=== PATIENT | female | born 1955 | race Caucasian/White ===

== ENCOUNTER 2017-05-31 20:16 | Inpatient (IN) | payer MEDICARE, MEDICAID ==
[~2017-05-31] VITALS: Ht 157.5 cm; Wt 51.3 kg
[2017-05-31 20:17] VITALS: BP 179/103
[2017-05-31] MEDS ORDERED: WELLBUTRIN SR150 MG PO (20:35)
[2017-05-31] MEDS ORDERED: HYDROCODON-ACE1 EAC7 PO (20:35)
[2017-05-31] MEDS ORDERED: LOPRESSOR25 PO (20:36)
[2017-05-31] MEDS ORDERED: SINGULAIR 10 MG10 M1 PO (20:36)
[2017-05-31] MEDS ORDERED: VENTOLIN HFA 1818 GM INH (20:37)
[2017-05-31] MEDS ORDERED: SYMBICORT160 MCG/4. INH (20:37)
[2017-05-31] MEDS ORDERED: NICOTINE TRANSD21 M1 TOP (20:37)
[2017-05-31] MEDS ORDERED: SPIRIVA INH (20:39)
[2017-05-31 21:16] LABS: ABSOLUTE LYMPHOCYTES 1.8 thou/uL (0.8-5.3); ABSOLUTE MONOCYTES 1.1 thou/uL (0.0-1.2); BASOPHILS 0.4 %; EOSINOPHILS 0.3 %; HEMATOCRIT 34.1 % (37.0-47.0); HEMOGLOBIN 11.5 gm/dL (12.0-15.0); LYMPHOCYTES 15.1 %; MCHC 33.8 g/dL (28.0-37.0); MCV 91.8 fL (80.0-100.0); MONOCYTES 9.2 %; MPV 7.5 fl. (7.2-11.1); NUCLEATED RBCS 0 /100WBC; PLATELET COUNT* 369 thou/uL (150-400); RBC 3.71 mil/uL (4.20-5.00); RDW-CV 14.1 % (10.5-14.5); WBC 12.1 thou/uL (4.0-11.0)
[2017-05-31 21:29] LABS: CALCIUM 8.4 mg/dL (8.5-10.1); CREATININE 0.8 mg/dL (0.6-1.3); POTASSIUM 3.9 mmol/L (3.5-5.1)
--- NOTE | 2017-05-31 21:31 | NUR ---
DR GALLARDO HERE TO SEE PATIENT
[2017-05-31 21:34] LABS: ALBUMIN 3.4 g/dL (3.4-5.0); TOTAL BILIRUBIN 0.2 mg/dL (<0.1-1.0); TOTAL PROTEIN 6.7 g/dL (6.4-8.2)
[2017-05-31 22:05] LABS: URINE BILIRUBIN NEGATIVE (Negative); URINE BLOOD NEGATIVE (Negative); URINE CLARITY CLEAR; URINE COLOR YELLOW; URINE GLUCOSE-RANDOM NEGATIVE (Negative); URINE KETONES NEGATIVE (Negative); URINE LEUKOCYTES-REFLEX NEGATIVE (Negative); URINE NITRITE-REFLEX NEGATIVE (Negative); URINE PROTEIN NEGATIVE (Negative); URINE SPECIFIC GRAVITY 1.025 (1.005-1.030); URINE UROBILINOGEN 0.2 E.U./dl (0.2-1.0)
[2017-05-31 23:10] VITALS: BP 181/106
[2017-05-31 23:31] VITALS: BP 133/99
[2017-06-01 04:10] VITALS: BP 125/74
--- NOTE | 2017-06-01 04:36 | NUR ---
END SHIFT: PT RESTED WELL. C/O PAIN IN RLE. RELIEVED WITH IV PAIN MEDICATION. FAMILY AT BEDSIDE. IVF INFUSING WITHOUT DIFFICUTLY. 2+ PULSE NOTED IN RLE, FOOT IS WARM AND DRY WITH GOOD SENSATION AND PT CAN WIGGLE TOES APPROPRIATELY. SR ON MONITOR. ORELLANA DRAINING ADEQUATE. PLANS FOR ORTHO CONSULT THIS AM. PT HAS REMAINED NPO FOR THIS. SAFETY PRECAUTIONS IN PLACE. CALL LIGHT IN REACH. PERFORMED HOURLY ROUNDING. WILL CONT TO MONITOR.
[2017-06-01 05:30] LABS: HEMATOCRIT 30.8 % (37.0-47.0); HEMOGLOBIN 10.6 gm/dL (12.0-15.0); MCH 31.7 pg (26.0-34.0); MCHC 34.4 g/dL (28.0-37.0); MCV 92.2 fL (80.0-100.0); MPV 7.5 fl. (7.2-11.1); RBC 3.34 mil/uL (4.20-5.00); RDW-CV 14.1 % (10.5-14.5); WBC 9.7 thou/uL (4.0-11.0)
[2017-06-01 06:17] LABS: ALBUMIN 2.9 g/dL (3.4-5.0); CALCIUM 7.9 mg/dL (8.5-10.1); CREATININE 0.6 mg/dL (0.6-1.3); POTASSIUM 3.4 mmol/L (3.5-5.1); TOTAL BILIRUBIN 0.3 mg/dL (<0.1-1.0); TOTAL PROTEIN 5.9 g/dL (6.4-8.2)
[2017-06-01 09:30] VITALS: BP 143/89
[2017-06-01 12:00] VITALS: BP 134/83
--- NOTE | 2017-06-01 15:51 | NUR ---
ASSUMED PT CARE AT 0700 PT IS ALERT AND ORIENTED X 4 PT HAS CONFUSION SISTER STATES PT WILL , PT C/O PAIN ORTHO IS NOT DOING SURGERY TODAY THEY WILL DO SURGERY TOMORROW PT WILL BE NPO AFTER MIDNIGHT GAVE PT PAIN MEDS AND ORTHO APPLIED SOFT SPLINT TO PT WHO TOLERATED PROCEDURE WELL, PT IS TURNED Q 2 HOURS PT HAS ORELLANA FOR IMMOBILAZATION, PT CALLS OUT APPROPRIATELY GAVE PAIN MEDS SCHEDULED, PT IS SR ON THE MONITOR WILL CONTINUE TO MONITOR
[2017-06-01 16:00] VITALS: BP 141/84
[2017-06-01 19:45] VITALS: BP 131/79
[2017-06-02] VITALS: BP 139/78
[2017-06-02 04:02] VITALS: BP 128/79
--- NOTE | 2017-06-02 04:18 | NUR ---
END SHIFT: PT RESTED WELL. C/O PAIN RELLIEVED BY PAIN MEDICATION. AWAITING ORTHO SURGERY TODAY. HAS REMAINED STRICT NPO. SPLINT ON R LEG REMAINS DRY INTACT. ORELLANA DRAINING ADEQUATE. VSS. ASSESSMENT UNCHANGED. SAFETY PRECAUTIONS IN PLACE.
[2017-06-02 07:32] LABS: CALCIUM 7.9 mg/dL (8.5-10.1); CREATININE 0.6 mg/dL (0.6-1.3); MAGNESIUM 1.8 mg/dL (1.8-2.4)
[2017-06-02 07:33] LABS: HEMATOCRIT 33.7 % (37.0-47.0); HEMOGLOBIN 11.2 gm/dL (12.0-15.0); MCH 30.8 pg (26.0-34.0); MCHC 33.1 g/dL (28.0-37.0); MCV 93.2 fL (80.0-100.0); MPV 7.7 fl. (7.2-11.1); RBC 3.62 mil/uL (4.20-5.00); WBC 9.6 thou/uL (4.0-11.0)
[2017-06-02 07:57] VITALS: BP 128/79
[2017-06-02 08:05] VITALS: BP 136/86
[2017-06-02 15:30] VITALS: BP 148/93
--- NOTE | 2017-06-02 15:46 | NUR ---
MET WITH PT'S SON/MEIR AND SISTER/SYLVIA AND THEN WITH PT TO DISCUSS HOME SITUATION/DC PLANNING. PT ADMITTED AFTER FALL WITH FEMUR FX. PER MEIR, PT HAD BEEN LIVING WITH HIM AND HIS GF RECENTLY. SHE HAD A FALL APR [address] [facility] AND THEN WENT TO SNF AT [facility]. STAYED UNTIL MAY 13 AND HAS BEEN AT HIS HOUSE SINCE WITH [facility]. PT HAD BEEN USING WALKER AND DOING FAIRLY WELL. HAD FALL THERE, MEIR STATES PT HAD BEEN USING THE STAIR AND IS NOT ALWAYS COMPLIANT WITH INSTRUCTIONS. HX OF TBI AND FAMILY THINKS SOME 'DEMENTIA' ALTHOUGH STATE HAVE NEVER BEEN 'OFFICIALLY' TOLD THAT. MEIR IS CONCERNED THAT PT WILL NOT BE ABLE TO RETURN HOME AND THINKS SHE PROBABLY NEEDS SNF TO LTC. THEY ARE INTERESTED IN STAYING CLOSE TO [place]. DISCUSSED OPTIONS. THEY WOULD LIKE TO HAVE [facility] AND [facility] CHECKED. CALLED AND FAXED REFERRAL TO BOTH FACILTIIES. ANTICIPATE PT MAY BE READY FOR DC NEAR THE END OF THE WEEK. WILL FOLLOW
--- NOTE | 2017-06-02 18:10 | EKG ---
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
[2017-06-02 20:00] VITALS: BP 156/98
--- NOTE | 2017-06-02 20:08 | NUR ---
ASSUMED CARE OF PT AT 0710. PT CONTINUES TO BE A&O X1 TO SELF. PT WENT TO THE OR THIS MORNING TO HAVE A ORIF OF THE RIGHT FEMUR. PT RETURNED THIS AFTERNOON AND HAS BEEN RESTING IN BED SICE. PT C/O PAIN HAVE BEEN CONTROLLED WITH ALTERNATING PO AND IV PRN PAIN MEDICATIONS. PT HAS AHD FAMILY AT BEDISDE ALL DAY. PT HAS BEEN TAKING OFF HER NC AND PULLING AT HER IV AT TIMES BUT IS EASILY REDIRECTED. PT CURRENTLY RESTING IN BED WITH FAMILY AT BEDSIDE. NURSING WILL CONTINUE TO MONITOR.
[2017-06-03] VITALS: BP 112/83
[2017-06-03 04:08] VITALS: BP 124/80
[2017-06-03 05:56] LABS: HEMATOCRIT 26.6 % (37.0-47.0); HEMOGLOBIN 9.3 gm/dL (12.0-15.0); MCH 31.6 pg (26.0-34.0); MCHC 34.9 g/dL (28.0-37.0); MCV 90.8 fL (80.0-100.0); MPV 8.2 fl. (7.2-11.1); RBC 2.94 mil/uL (4.20-5.00); WBC 16.1 thou/uL (4.0-11.0)
[2017-06-03 06:14] LABS: CALCIUM 7.9 mg/dL (8.5-10.1); CREATININE 0.5 mg/dL (0.6-1.3); MAGNESIUM 1.6 mg/dL (1.8-2.4); POTASSIUM 4.1 mmol/L (3.5-5.1)
--- NOTE | 2017-06-03 06:47 | NUR ---
PATIENT PARTIALLY PROGRESSING TOWARDS GOALS: PATIENT REMAINS ON 2L O2 NC WITH SATS >92% ON CONTINUOUS PULSE OXIMETRY. PAIN MANAGED WITH PRN MEDICATION. PATIENT COMBATIVE AT TIMES AND ATTEMPTING TO HIT STAFF. PATIENT WAS GIVEN A ONE TIME DOSE OF OLANZAPINE AT HS WITH PARTIAL RELIEF OF AGITATION. PATIENT MED/SURG STATUS. VSS. HOURLY ROUNDING OBSERVED. CALL LIGHT WITHIN REACH.
[2017-06-03 09:00] VITALS: BP 111/73
--- NOTE | 2017-06-03 12:02 | NUR ---
CONTINUE TO FOLLOW, DISCUSSED WITH DR MONTGOMERY. RECEIVED CALL BACK FROM [facility]. THEY ARE ABLE AT ACCEPT PT TO SNF TO LTC. UDPATED PT AND SISTER. LEFT MESSAGE FOR SON ALSO. ANTICIPATE PT TO DC TOWARD END OF THE WEEK. WILL FOLLOW
--- NOTE | 2017-06-03 16:09 | NUR ---
ASSUMED PT CARE AT 0700 PT IS ALERT TO SELF PT DENIES PAIN THIS AM OR SOA PT IS ON CONTINOUS O2 SATS ABOVE 90, PT IS TURNED Q 2 HOURS PT WORKED WITH PT/OT SAT ON SIDE OF BED, PT ORELLANA REMOVED PT IS INCONTIENT OF URINE, PT HAS ORDER FOR 2 BAGS OF MAGNESIUM WHICH THIS NURSE GAVE REDRAW IN AM, PT DIET ADVANCED TO FULL LIQUIDS WHICH PT TOLERATED AND DIET ADVANCED TO REGULAR FOR DINNER, GAVE PT PAIN MEDS PT SHOWED SIGNS OF PAIN THIS AFTERNOON, PT IS TRANSFERING TO [facility] SPINE SINCE PT IS MED SURG STATUS, GAVE REPORT TO [place] WILL TRANSFER
--- NOTE | 2017-06-03 16:44 | NUR ---
ASSUMED CARE OF PATIENT AT 1640. PATIENT AWAKE, ALERT, AND ORIENTED ONLY TO SELF. ATTEMPTED TO REORIENT PATIENT BUT WAS UNSUCCESSFUL. NO COMPLAINTS OF PAIN. MAGENESIUM TRANSFUSING TO LEFT FOREARM. DENIES NEEDS AT THIS TIME. FALL PRECAUTIONS IN PLACE. CALL LIGHT WITHIN REACH. NURSING WILL CONTINUE TO MONITOR.
[2017-06-03 18:00] VITALS: BP 99/66
--- NOTE | 2017-06-03 18:03 | NUR ---
PATIENT HAS REMAINED ALERT AND ORIENTED TO SELF ONLY. CONTINUOUS PULSE OX INTACT. OXYGEN INTACT AT 3 LPM PER NASAL CANULA TO KEEP SATURATION GREATER THAN 90%. PATIENT DENIES PAIN. DENIES NEEDS. CALL LIGHT WITHIN REACH. NURSING WILL CONTINUE TO MONITOR.
[2017-06-03 20:00] VITALS: BP 102/71
[2017-06-04 00:41] VITALS: BP 102/70
[2017-06-04 04:24] VITALS: BP 103/68
[2017-06-04 05:02] LABS: HEMATOCRIT 26.4 % (37.0-47.0); MCH 31.2 pg (26.0-34.0); MCHC 34.1 g/dL (28.0-37.0); MCV 91.5 fL (80.0-100.0); MPV 8.5 fl. (7.2-11.1); RBC 2.89 mil/uL (4.20-5.00); WBC 12.8 thou/uL (4.0-11.0)
--- NOTE | 2017-06-04 05:16 | NUR ---
ASSUMED CARE OF PT AT 1900 ALERT BUT CONFUSED AT BASLINE, VS AND ASSESSMENT STABLE. PT DENIED ANY COMPLAINTS AND SLEPT THROUGH THE NIGHT. WILL CONTINUE PLAN OF CARE.
[2017-06-04 05:32] LABS: ALBUMIN 2.4 g/dL (3.4-5.0); CALCIUM 7.8 mg/dL (8.5-10.1); CREATININE 0.5 mg/dL (0.6-1.3); MAGNESIUM 2.2 mg/dL (1.8-2.4); POTASSIUM 4.6 mmol/L (3.5-5.1); TOTAL BILIRUBIN 0.6 mg/dL (<0.1-1.0); TOTAL PROTEIN 5.3 g/dL (6.4-8.2)
[2017-06-04 07:54] VITALS: BP 100/74
[2017-06-04 16:51] VITALS: BP 112/68
--- NOTE | 2017-06-04 17:25 | NUR ---
PATIENT REMAINS ALERT AND ORIENTED TO SELF. HEART RATE INCREASED TO 144. PHYSICIAN PAGED AND EKG OBTAINED. SINUS TACHYCARDIA. RATE DECREASED TO 127. PHYSICIAN PAGED. PATIENT DENIES PAIN AND HAS VOIDED THREE TIMES TODAY, 1 INCONTINENT EPISODE AND 2 UNMEASURED VOIDS VIA BSC. DENIES NEEDS AT THIS TIME. CALL LIGHT WITHIN REACH. NURSING WILL CONTINUE TO MONITOR.
[2017-06-04 21:00] VITALS: BP 115/76
[2017-06-04 21:30] VITALS: BP 115/76
--- NOTE | 2017-06-04 22:57 | NUR ---
PATIENTS FAMILY INFORMED NURSE AT APPROXIMATELY 2200 THAT THEY THOUGHT PATIENT MAY HAVE SOME SLIGHT LEFT SIDED FACIAL DROOPING. NIH STROKE ASSESSMENT INITIATED AND PATIENT PASSED WITH A SCORE OF (3). DR. MONTGOMERY WAS NOTIFIED AND FAMILY IS HERE AT BEDSIDE WITH PATIENT. NO NEW ORDERS AT THIS TIME. PATIENT HAS HISTORY OF DEMENTIA PER FAMILY. FAMILY STATED THAT PATIENT TOOK A FALL AT HOME IN MARCH 2017 AND HIT HER HEAD AND HAS HAD CHANGES IN MENTAL STATUS SINCE FALL WELL. PATIENT IS ALERT TO SELF BUT CONFUSED AND FORGETFUL WHICH IS PATIENTS NORMAL BASELINE PER FAMILY. VSS, ALTHOUGH PULSE WAS TACHY AT 125 BUT REGULAR RHYTHM AND SP02 WAS 90% ON RA. PATIENT WAS PLACED ON 2L 02 VIA NASAL CANNUL AND SATS WERE 94% ON 2L. MEDICATIONS GIVEN ORDERED. FALL PRECAUTIONS IN PLACE AND HOURLY ROUNDS TO BE MADE. WILL CONTINUE WITH PLAN OF CARE AND NURSING TO MONITOR.
[2017-06-05 00:21] VITALS: BP 102/74
[2017-06-05 03:42] VITALS: BP 111/80
[2017-06-05 04:26] LABS: CREATININE 0.6 mg/dL (0.6-1.3); POTASSIUM 3.7 mmol/L (3.5-5.1)
[2017-06-05 04:32] LABS: HEMATOCRIT 24.5 % (37.0-47.0); HEMOGLOBIN 8.8 gm/dL (12.0-15.0); MCH 32.4 pg (26.0-34.0); MCHC 35.8 g/dL (28.0-37.0); MCV 90.5 fL (80.0-100.0); MPV 8.7 fl. (7.2-11.1); RBC 2.71 mil/uL (4.20-5.00); RDW-CV 14.1 % (10.5-14.5); WBC 9.4 thou/uL (4.0-11.0)
--- NOTE | 2017-06-05 06:45 | NUR ---
PATIENT HAS SLEPT OFF AND ON BUT BEEN SOMEWHAT RESTLESS THROUGHOUT THE NIGHT. VSS ON 2L 02 VIA NASAL CANNULA. PULSE LOWER NOW IN THE 90'S. NO C/O PAIN. ALERT TO SELF BUT CONFUSED AND FORGETFUL, BUT FAMILY STATES SHE HAS HISTORY OF DEMENTIA. PATIENT HAS BEEN INCONTINENT OF BLADDER DURING THE SHIFT. ROSITA CARE PERFORMED. IV IN LEFT FOREARM-SL. FALL PRECAUTIONS IN PLACE AND HOURLY ROUNDS MADE. WILL CONTINUE WITH PLAN OF CARE AND NURSING TO MONITOR.
[2017-06-05 08:44] VITALS: BP 118/81
--- NOTE | 2017-06-05 12:35 | NUR ---
ASSUMED CARES OF PT AT 0700. PT IN BED, BED IN LOW LOCKED POSITION, FALL PRECAUTIONS IN PLACE AND ACTIVE. CALL BUTTON AND PERSONAL ITEMS IN PT REACH. PT ALERT TO SELF, VERY CONFUSED AND FORGETFUL, HX OF ALCOHOLISM, TBI AND DEMENTIA. HR TACHYCARDIC PER AUSCULTATION, LCTAB/DIMINISHED. INCONTINENT OF B/B AT THIS TIME. PT UP ASSIST X2 WITH WALKER. LFA IV PATENT TO FLUSH, SALINE LOCKED. NWB/TOE TOUCH ON RIGHT LE, BUT DUE TO CONFUSION, PT HAS TROUBLE FOLLOWING DIRECTIONS TO NOT PUT WEIGHT ON RLE. PT TURNS SELF IN BED. DRESSING ON RIGHT SURGICAL SITE IN PLACE, C/D/I. CESARIO HOSE IN PLACE. HOURLY ROUNDING CONTINUE. SCATTERED BURISES AND SCARS. WILL CONTINUE TO MONITOR PT PROGRESS AND STATUS.
--- NOTE | 2017-06-05 13:51 | NUR ---
RECEIVED CALL FROM ANDIE AT [facility]. PLAN DC TOMORROW. CM WILL CONTINUE TO FOLLOW
--- NOTE | 2017-06-05 15:15 | EKG ---
[place] [address] ELECTROCARDIOGRAM REPORT Name: JUAN MIGUELJAMEEL MARTE Room: [address] ADM IN M.R.#: [id number] Admission: 05/31/17 Attend Phys: Elian Mcpherson, Discharge: Date of : 53 Report #: [id number] THIS REPORT FOR: //name// [facility] Test Date: 2017-06-04 Test Time: 17:13:51 Pat Name: JAMEEL TORRES Department: Room: [address] Gender: F Block Engraver: [facility] : 1955 Requested By: Montse Reeves Order Number: [id number] Britany MD: Edward Hearn Measurements Intervals [place] Rate: 127 P: 25 NH: 154 QRS: 10 QRSD: 82 T: 27 QT: 291 QTc: 424 Interpretive Statements Sinus tachycardia Borderline T abnormalities, anterior leads Compared to ECG 06/02/2017 08:08:57 T-wave abnormality now present Heart rate has increased Electronically Signed On 06-05-2017 15:15:14 CDT by Edward Hearn [email or web address] <ELECTRONICALLY SIGNED> By: Edward Hearn MD, [facility] 06/05/17 1515 1713 1713 Edward Hearn MD, [facility] /EPI
[2017-06-05 15:28] VITALS: BP 119/72; BP 123/87
--- NOTE | 2017-06-05 20:08 | NUR ---
BEDSIDE REPORT TO LIFESTYLE CONSULTANT FOR CONTINUED CARES. PT REMAINS STABLE, ALERT TO SELF, CONFUSED, FORGETFUL, IMPULSIVE. HX OF ALCOHOLISM, DEMENTIA, TBI. HIGH FALL RISK. FALL PRECAUTIONS REMAIN ACTIVE. HOURLY ROUNDS COMPLETED. PT PRESENTLY IN BED WITH BED ALARM ON, FOUR SIDERAILS UP FOR PROTECTION AND SAFETY.
[2017-06-06 04:04] VITALS: BP 129/62
[2017-06-06 04:28] LABS: HEMATOCRIT 22.7 % (37.0-47.0); MCH 31.8 pg (26.0-34.0); MCV 90.9 fL (80.0-100.0); MPV 7.8 fl. (7.2-11.1); RBC 2.5 mil/uL (4.20-5.00); WBC 7.8 thou/uL (4.0-11.0)
--- NOTE | 2017-06-06 04:28 | NUR ---
PATIENT ORIENTED TO SELF ONLY. CONFUSED AND FORGETFUL. PATIENT CAN BE IMPULSIVE AT TIMES. BED ALARM ON. PATIENT REPOSITIONS SELF FREQUENTLY IN BED. UP WITH ASSIST X1 TO BSC. DRESSING TO RIGHT HIP CLEAN DRY AND INTACT. VITALS STABLE ON 2L O2 NC. WILL CONTINUE TO MONITOR.
[2017-06-06 05:08] LABS: CALCIUM 8.1 mg/dL (8.5-10.1); CREATININE 0.5 mg/dL (0.6-1.3)
[2017-06-06 08:40] VITALS: BP 129/83
--- NOTE | 2017-06-06 12:20 | NUR ---
PT.TO BE DISCHARGED TODAY TO [facility]. NOTIFIED ALBERTO/JORDAN. FAXED DISCHARGE ORDERS AND ORTHO ORDERS TO HER. SHE WILL ARRANGE A VAN FOR 1400. CHART BEING COPIED TO GO WITH PT. NURSING TO CALL REPORT. NOTIFIED PT.AND SISTER,SYLVIA,WHO WAS IN ROOM. SISTER SAID SHE WILL LET PT.'S SON KNOW.
[2017-06-06 12:35] VITALS: BP 129/83
[2017-06-06 12:46] VITALS: BP 129/83
[2017-06-06] MEDS ORDERED: ENOXAPARIN40 MG/0.1 SUBQ (12:53)
[2017-06-06] MEDS ORDERED: ASPIRIN325 PO (12:54)
[2017-06-06] MEDS ORDERED: COLACE100 MG PO (12:55)
[2017-06-06] MEDS ORDERED: APAP650 PO (12:58)
[2017-06-06] MEDS ORDERED: MILK OF MA2400 MG/10 PO (13:02)
[2017-06-06] MEDS ORDERED: OXYCODONE HCL 55 MG PO (13:03)
[2017-06-06] MEDS ORDERED: METAMUCIL0.4 GM PO (13:04)
[2017-06-06] MEDS ORDERED: PROTONIX40 M1 PO (13:05)
--- NOTE | 2017-06-06 14:44 | NUR ---
PATIENT LEFT UNIT BY WHEELCHAIR WITH TRANSPORTATION AT 1430. IV DC'D. EDUCATED PATIENT ON DISHCARGE INSTRUCTIONS AND NEW MED SCRITPS. PATIENT VERBALIZED UNDERSTANDING.
[2017-06-06 14:46] VITALS: BP 129/83
--- NOTE | 2017-07-07 12:57 | OP ---
[address] [address] OPERATIVE REPORT Name: RAMESHJAMEEL JACQUES Room: [address] IN M.R.#: [id number] Admission: 05/31/17 Attend Phys: Elian Mcpherson, Discharge: 06/06/17 Date of : 53 Report #: [id number] THIS REPORT FOR: //name// CC: Tyrell Mcpherson PREOPERATIVE DIAGNOSES: 1. Right periprosthetic femur fracture, [place] C. 2. Osteoporosis. POSTOPERATIVE DIAGNOSES: 1. Right periprosthetic femur fracture, [place] C. 2. Osteoporosis. PROCEDURE: 1. Open reduction and internal fixation of right periprosthetic [place] C femur fracture. 2. Physician-directed fluoroscopy greater than 1 hour. SURGEON: Deny Barajas DO GARMENT PATTERNMAKER: 1. Sean Khanna DO 2. Flash Fox DO ANESTHESIA: General. ANTIBIOTICS: Weight appropriate dosing of clindamycin IV. ESTIMATED BLOOD LOSS: 300 mL. Cell Saver used, not enough to give any autologous back. COMPLICATIONS: None. SPECIMENS: None. DRAINS: None. CONDITION: The patient stable to PACU IMPLANTS: Sima distal femur periarticular locking plate with cortically placed screws with locking end caps distally and cables proximally. INDICATIONS FOR PROCEDURE: The patient is a 62-year-old female who was admitted to [facility] after a fall. She was diagnosed with a femur fracture. This was a periprosthetic fracture, [place] type C with a stem proximally. We had a very long conversation with her and her son who was [address] [address] OPERATIVE REPORT Name: JAMEEL TORRES Room: [address] IN M.R.#: [id number] Admission: 05/31/17 Attend Phys: Elian Mcpherson, Discharge: 06/06/17 Date of : 53 Report #: [id number] present at bedside during her consultation where we discussed the significance of this injury and the recommendation for operative treatment. I addressed any questions or concerns that she had. She is an alcoholic. She admitted this as well as both her son and her sister, who I met after surgery, were very concerned about this history of hers. She had been staying with her son as of recently due to other falls that she has had. She has been dealing with what they were describing as sundowning or dementia type symptoms and that is actually what led to her falling down as she was not supposed to be going up the stairs, when her son found her it was too late and she fell. She has smoked since she was 13 years old and well over 1 pack a day. They said she has been cutting back on that since been staying with them as well and this has been since mid to late March. I was very adamant with them that it is going to be important that she continuing any alcohol and smoking, abusing illicit substances are going to significantly increase her risk of complications associated with the surgery in the postoperative period. Her bone quality based on x-ray does appear to be quite osteopenic versus osteoporotic, and we will be recommending that she is on vitamin D and calcium and also being worked up by her primary care physician for osteoporosis and treated if necessary. I had a very long conversation about the risks and complications associated with the treatment. Please see my consultation note for full list of what was discussed. After addressing questions and concerns that she or her family had, she acknowledged and accepted those risks and gave her verbal and written consent to proceed. DESCRIPTION OF PROCEDURE: In the presence of the preoperative and intraoperative teams I asked the patient what extremity was correct, she said the right. I marked that extremity. All team members agreed. She was transferred to the operative suite where a briefing was performed indicating correct patient, procedure, site, antibiotics and all implants needed were present and sterile. All team members agreed. General anesthetic was administered. She was transferred over to the operative table and then placed in the left lateral decubitus position so that the right leg will be up and well padded and was secured to the beanbag. The right lower extremity was then sterilely prepped and draped in standard fashion. Official timeout was performed indicating correct patient, procedure, site, antibiotics and all team members agreed. We used her previous proximal incision from her hip hemiarthroplasty. Plan to excise that scar and then continue the incision distally. We began by 10 blade scalpel, taking care of skin. As mentioned, we excised the scar tissue along the proximal incision and continued distally and electrocautery was taken down through skin and subcutaneous tissue to make sure that hemostasis was maintained. We got down to the IC band layer. We incised through this with a second deep scalpel, visualizing our vastus underneath. We split the fascia of the vastus and then a mid vastus approach was taken down to the femur. We visualized our fracture site, cleaned out what was necessary to perform an anatomic reduction based on preoperative planning. We knew we would be able to get an anatomic reduction proximally, there will be a butterfly [facility] [address] [place] [address] OPERATIVE REPORT Name: JAMEEL TORRES Room: [address] IN Peggy#: [id number] Admission: 05/31/17 Attend Phys: Elian Mcpherson, Discharge: 06/06/17 Date of : 53 Report #: [id number] placed medially that we would not disturb any blood flow to. Once we got proximally to that fracture that we had preoperatively planned to young in, we visualized this quite nicely, cleaned it up, irrigated, traction on the leg and [id number] clamp, we were able to perform an anatomic reduction. Once that dwaqh-qy-fvazj clamp was in place, we then brought in the C-arm and confirmed on multiple planes that it was an anatomic reduction. We then placed two 5.0 cortical screws in a lag type fashion. They had excellent purchase and they further compressed the fracture site on direct visualization. At that point in time, we then fit an appropriately sized Sima distal femur periarticular locking plate. We confirmed on both AP and lateral images that the plate was in the appropriate position, K-wire was in position, and then began bisecting the plate down distally with two cortically placed screws along the metaphyseal flare. The cortical bone was not very thick and purchase was not robust, therefore the screw locking caps were placed. We placed screws in the distal femur with locking end caps as well. This was a cemented stem and the revision-type stem that she had previously had an infection. I marked the proximal extent of the fracture with a Paoli and saved that image; however, the proximal extent of that would be within a centimeter of the end of the stem and with this being a cemented stem I did not want to disrupt any other and lead to instability of the stem. Therefore cables were placed. We placed five grommets and then passed five cables staying on bone and passing them hugging bone the entire way. We then sequentially tightened down the cables, confirmed that the cables were of appropriate tightness not only by direct visualization, but also multiple planar C-arm images. We then crimped the cables and cut them. At this point in time, all hardware was in position. We confirmed appropriate position of all hardware, screws and wires and saved those images. At that point in time, we then thoroughly irrigated with normal saline 3000 mL in total. We began our closure. Closure was with 0 Vicryl running locking suture to reapproximate the vastus fascia, 0 Vicryl [id number]-vg-qxueh interrupted to reapproximate the IT band, and then a #2 Stratafix deep suture for reapproximation of the IT band. We then irrigated with 500 mL of normal saline through the subcutaneous tissue, 2-0 Monocryl buried deep subQ and then tal. Prior to closure initial count was correct. Once we had full closure, all counts were correct and final. We performed a debriefing where we confirmed the procedure, stated no complications, blood loss and that all counts were correct and final. All team members agreed. Sterile dressings were applied. She was transferred off the operative table to her bed in stable condition, successfully extubated and transferred to the PACU in stable condition. POSTOP COURSE AND EVALUATION: I spoke with her sister. She had given me permission to speak with family. Sister did have quite a bit of concerns about her overall condition. She was quite upfront about her sister's significant alcohol, tobacco and even marijuana abuse. She was also quite concerned about the fact that she has been showing significant signs that she is not sure if it is withdrawal symptoms from not drinking since staying with her son or if it is early signs of dementia. She states that she has some sundowning type episodes [address] [address] OPERATIVE REPORT Name: JAMEEL TORRES Room: [address] IN [place]#: [id number] Admission: 05/31/17 Attend Phys: Elian RamirezMagy Thuanarnulfo, Discharge: 06/06/17 Date of : 53 Report #: [id number] where she will get completely confused and begin walking off and being very combative, especially in the evening time. I let her know that we will try to give her as many resources as we possibly can and that tobacco and alcohol cessation is going to be of paramount importance, also abstaining from any type of recreational drug use and the alcohol will be important not only for her overall health, but also if she becomes inebriated from these substances that could impair her ability to follow any postoperative protocol instructions. Sister thanked me for my time. When I went to examine her in the PACU, she was resting comfortably. Her pain was minimal; however, she was not able to follow any significant commands. When she went back up to her room and was more alert, I went to examine her there. She was significantly more alert, minimal pain, minimal pain medication has been given her, she was resting quite comfortably and able to follow commands. She was fully neurovascularly intact distally with palpable pedal pulses. She could wiggle her toes, activate plantar flexion and dorsiflexion of her great toe as well as her ankle, and all of her compartments were soft and appropriately tender for her immediately postoperative course. Deep venous thrombosis prophylaxis will be with Lovenox as directed and also mechanical CESARIO hose and foot pumps. She is nonweightbearing. Physical therapy will be beginning tomorrow. Anticipate case management, we will their assistance in regards to placement for [facility] facility versus rehabilitation. We will follow her closely. <ELECTRONICALLY SIGNED> By: Gil Willard DO 07/07/17 1257 2210 [id number] Barajas DO /nt
== END 2017-06-06 14:28 | DRG 481 ==
LOC: M.ERS 20:16 → M.TBA-ER 20:57 → M.2W 21:34 → M.TBA-ER 21:34 → M.2W 22:44 → M.ORTHSURG 06-03 16:36 → M.TBA 06-04 08:55 → M.ORTHSURG 06-04 09:00
PROVIDERS: Emergency Medicine; Internal Medicine; Orthopaedic Surgery; ADMIT Family Medicine
PROC: 0QSB04Z Reposition Right Lower Femur with Internal Fixation Device, Open Approach (ICD-10-PCS; principal; 2017-06-02)
DX: M80.051A Age-related osteoporosis with current pathological fracture, right femur, initial encounter for fracture (principal); E87.1 Hypo-osmolality and hyponatremia; E44.1 Mild protein-calorie malnutrition; M97.01XA Periprosthetic fracture around internal prosthetic right hip joint, initial encounter; J44.9 Chronic obstructive pulmonary disease, unspecified; S72.401A Unspecified fracture of lower end of right femur, initial encounter for closed fracture; S32.591A Other specified fracture of right pubis, initial encounter for closed fracture; F17.210 Nicotine dependence, cigarettes, uncomplicated; F03.90 Unspecified dementia, unspecified severity, without behavioral disturbance, psychotic disturbance, mood disturbance, and anxiety; I10 Essential (primary) hypertension; W10.9XXA Fall (on) (from) unspecified stairs and steps, initial encounter; Y93.89 Activity, other specified; Y92.89 Other specified places as the place of occurrence of the external cause; Y99.8 Other external cause status; Z79.899 Other long term (current) drug therapy; Z88.0 Allergy status to penicillin; Z87.820 Personal history of traumatic brain injury

== ENCOUNTER → 2018-12-03 | Outpatient (CLI) | payer MEDICARE, MEDICAID ==
[~2018-12-03] MED LIST: APAP650 PO; ASPIRIN325 PO; COLACE100 MG PO; ENOXAPARIN40 MG/0.1 SUBQ; HYDROCODON-ACE1 EAC7 PO; LOPRESSOR25 PO; METAMUCIL0.4 GM PO; MILK OF MA2400 MG/10 PO; NICOTINE TRANSD21 M1 TOP; OXYCODONE HCL 55 MG PO; PROTONIX40 M1 PO; SINGULAIR 10 MG10 M1 PO; SPIRIVA INH; SYMBICORT160 MCG/4. INH; VENTOLIN HFA 1818 GM INH; WELLBUTRIN SR150 MG PO
--- NOTE | 2018-12-05 16:32 | SLEEP ---
[address] [address] SLEEP STUDY REPORT Name: JAMEEL TORRES Room: [facility]#: [id number] Admission: 12/03/18 Attend Phys: Deny Mac MD Discharge: Date of : 53 Report #: [id number] THIS REPORT FOR: //name// CC: Tyrell Mac MD This study has been reviewed in its entirety by a board certified sleep specialist DATE OF SERVICE: 12/03/2018 ATTENDING PHYSICIAN: Deny Mac MD The patient is a 63-year-old who weighs 125 pounds with a BMI of 22.9. The patient underwent a split night study performed at [facility]. The patient is wheelchair bound and is unable to transfer without person assist. She was also incontinent on arrival. Eventually, the sleep study was performed and this was a split night study. During the night study, the patient spent 430 minutes in bed and slept for 241 minutes with a sleep efficiency of 56%. Sleep latency was 37 minutes with a REM latency of 39.5 minutes, which was short. Sleep architecture showed normal stage 1 and stage 2 sleep, increased slow wave and reduced REM sleep. During the initial diagnostic portion of the study, the patient slept for 87 minutes. During that time, there were 33 obstructive apneas, no mixed and 4 central apneas. There were 7 hypopneas. The patient's apnea hypopnea index was 30 per hour with a REM index of 90 per hour and a supine index of 30 per hour. EKG monitoring revealed normal sinus rhythm. Average heart rate 87 beats per minute. No clinically significant PLM seen. Nocturnal oximetry study revealed an average oxygen saturation of 88% with a lowest of 67%, 16 minutes were spent in oxygen saturation less than 89%. The patient met the criteria for CPAP initiation. It was started at 5 cm water and titrated up to 10 cm of water. At the final pressure, the patient slept for 104 minutes including 11 minutes of REM sleep. The patient had supine sleep throughout. The patient's AHI significantly improved and was reduced to 6.9 per hour. Oxygen saturations remained above 88%. I would recommend the patient should be placed on 12 [place] [address] SLEEP STUDY REPORT Name: RAMESHPOLLY JACQUESNDY Room: [facility]#: [id number] Admission: 12/03/18 Attend Phys: Deny Mac MD Discharge: Date of : 53 Report #: [id number] IMPRESSION: 1. Severe sleep apnea-hypopnea syndrome at an apnea-hypopnea index of 30 per hour with a rapid eye movement apnea-hypopnea index of 90 per hour. 2. Nocturnal hypoxia secondary to obstructive sleep apnea, resolved with continuous positive airway pressure. 3. No clinically significant periodic limb movements. RECOMMENDATIONS: 1. CPAP at 12 cm water should be used on a nightly basis. 2. Follow up in 4-6 weeks to assess compliance with CPAP and to document clinical improvement. 3. Avoid [employer] depressants. 4. Cautioned regarding driving until symptoms of sleep apnea resolve with the use of CPAP. <ELECTRONICALLY SIGNED> By: Peter Peña MD 12/05/18 1632 1820 [id number] Peña MD /nt
== END ==
LOC: M.SLEEPLAB 12-02 15:00
DX: G47.33 Obstructive sleep apnea (adult) (pediatric) (principal); G47.34 Idiopathic sleep related nonobstructive alveolar hypoventilation; I10 Essential (primary) hypertension; R29.6 Repeated falls; F41.9 Anxiety disorder, unspecified; F17.200 Nicotine dependence, unspecified, uncomplicated; F31.9 Bipolar disorder, unspecified; Z72.89 Other problems related to lifestyle